=== PATIENT | female | born 1965 | race Caucasian/White ===

== ENCOUNTER 2025-04-25 22:05 | Emergency (ER) | payer SELFPAY ==
[~2025-04-25] VITALS: Ht 167.6 cm; Wt 73.0 kg
[2025-04-25 22:15] VITALS: BP 166/100; PULSE 106; RESP 20; TEMP 36.8; O2SAT 100
== END 2025-04-25 22:51 | disposition left against medical advice (07) ==
LOC: ER 22:05
DX: F10.129 Alcohol abuse with intoxication, unspecified (principal); Z53.21 Procedure and treatment not carried out due to patient leaving prior to being seen by health care provider; Y90.9 Presence of alcohol in blood, level not specified
CPT/HCPCS: 99283